=== PATIENT | male | born 1945 | race Caucasian/White ===

== ENCOUNTER 2020-12-16 08:11 | Day surgery (SDC) | payer OTHER ==
[~2020-12-16] VITALS: Ht 170.2 cm; Wt 66.2 kg
[2020-12-16] VITALS (12 sets, daily range): BP systolic 118–163; BP diastolic 69–101
[2020-12-16] MEDS ORDERED: OMEP40CA13 PO (08:52)
[2020-12-16] MEDS ORDERED: DOL10T PO (08:52)
[2020-12-16] MEDS ORDERED: CHOL20002 PO (08:52)
[2020-12-16] MEDS ORDERED: SAW1CAPS5 PO (08:52)
[2020-12-16] MEDS ORDERED: POLY17PO10 PO (08:52)
[2020-12-16] MEDS ORDERED: FOLI0.4T14 PO (08:52)
[2020-12-16] MEDS ORDERED: TIOT4MIS3 INH (08:52)
[2020-12-16] MEDS ORDERED: SENN-263 PO (08:52)
[2020-12-16] MEDS ORDERED: CYAN100082 PO (08:52)
[2020-12-16] MEDS ORDERED: midazolam 1 mg/ML 2ml injection ONE (11:16)
[2020-12-16] MEDS ORDERED: fentaNYL/PF 50MCG/1 ML 2ML syringe ONE (11:16)
== END 2020-12-16 13:40 | disposition home or self-care (01) ==
LOC: SSTAY O 08:11
PROVIDERS: ATTEND Radiology Diagnostic Radiology
DX: C34.11 Malignant neoplasm of upper lobe, right bronchus or lung (principal); R91.8 Other nonspecific abnormal finding of lung field; Z87.891 Personal history of nicotine dependence; J44.9 Chronic obstructive pulmonary disease, unspecified
CPT/HCPCS: 32408; 71045; J2250; J3010; 77012; 99152; 99153